=== PATIENT | female | born 1975 | race American Indian/Alaskan Native ===

== ENCOUNTER 2019-10-13 21:19 | Inpatient (IN) | payer OTHER ==
[2019-10-13] MEDS ORDERED: ONDANSETRON 4 MG/2 ML INJ ONE (21:28)
[2019-10-13] MEDS ORDERED: CEFEPIME/NS 2 GM/100 ML 2 GM/100 ML BAG IV ONE (21:32)
[2019-10-13 21:51] LABS: Hematocrit 46.7 % (30.3-42.9); Hemoglobin 15.3 gm/dl (10.1-14.3); Mean Corpuscular HGB Conc 33 % (30-34); Mean Corpuscular Volume 97 fl (79-97); Platelet Count 270 K/mm3 (140-440); Red Blood Count 4.81 M/mm3 (3.65-5.03); Red Cell Distribution Width 14.2 % (13.2-15.2)
[2019-10-13 22:03] LABS: INR 0.96 (0.87-1.13); Partial Thromboplastin Time 24.2 Sec. (24.2-36.6)
[2019-10-13 22:10] LABS: Alanine Aminotransferase 21 units/L (7-56); Albumin 3.8 g/dL (3.9-5); BUN/Creatinine Ratio 14; Blood Urea Nitrogen 17 mg/dL (7-17); Calcium 9.1 mg/dL (8.4-10.2); Hemolysis Index 25
[2019-10-13 22:23] LABS: Giant Platelets 1+; RBC Morphology Normal; Total Cells Counted 100
[2019-10-13 23:15] LABS: Hepatitis B Surface Antigen Non-Reactive (Negative); Hepatitis C Virus Antibody Non-Reactive (NonReactive)
--- NOTE | 2019-10-14 00:15 | Emergency Department Report ---
ED General Adult HPI - General Chief complaint: Dyspnea/Respdistress Stated complaint: RESP DISTRESS Time Seen by Provider: 10/13/19 21:33 Source: EMS Mode of arrival: Stretcher Limitations: Other - History of Present Illness Initial comments: Patient presents to the emergency department with a chief complaint of shortness of breath. Per EMS they received a phone call for our response the patient and upon their arrival the patient's O2 sats were in the low 40s. An attempt was made to intubate the patient was began to vomit. Patient arrives to the ED with a nonrebreather mask on with O2 sats in the low 90s. Patient complains of feeling short of breath and states that while working out she began to cough severely which led to her throwing up. Patient denies chest pain, headache, abdominal pain. -: Sudden Severity scale (0 -10): 0 Consistency: constant Improves with: none Worsens with: none Associated Symptoms: denies other symptoms Treatments Prior to Arrival: none - Related Data Allergies Allergy/AdvReac Type Severity Reaction Status Date / Time No Known Allergies Allergy Unverified 10/13/19 21:55 ED Review of Systems ROS: Stated complaint: RESP DISTRESS Other details as noted in HPI Constitutional: denies: chills, fever Eyes: denies: eye pain, eye discharge, vision change ENT: denies: ear pain, throat pain Respiratory: cough, shortness of breath. denies: wheezing Cardiovascular: denies: chest pain, palpitations Endocrine: no symptoms reported Gastrointestinal: denies: abdominal pain, nausea, diarrhea Genitourinary: denies: urgency, dysuria, discharge Musculoskeletal: denies: back pain, joint swelling, arthralgia Skin: denies: rash, lesions Neurological: denies: headache, weakness, paresthesias Psychiatric: denies: anxiety, depression Hematological/Lymphatic: denies: easy bleeding, easy bruising ED Past Medical Hx - Past Medical History Previous Medical History?: Yes Hx Hypertension: Yes - Social History Smoking Status: Never Smoker Substance Use Type: None ED Physical Exam - General Limitations: Other General appearance: alert, in distress - Head Head exam: Present: atraumatic, normocephalic - Eye Eye exam: Present: normal appearance, PERRL, EOMI - ENT ENT exam: Present: mucous membranes moist - Neck Neck exam: Present: normal inspection - Respiratory Respiratory exam: Present: respiratory distress, rales (B/L) - Cardiovascular Cardiovascular Exam: Present: normal rhythm, tachycardia. Absent: systolic murmur, diastolic murmur, rubs, gallop - GI/Abdominal GI/Abdominal exam: Present: soft, normal bowel sounds. Absent: distended, tenderness - Extremities Exam Extremities exam: Present: normal inspection - Back Exam Back exam: Present: normal inspection - Neurological Exam Neurological exam: Present: alert, oriented X3, CN II-XII intact. Absent: motor sensory deficit - Psychiatric Psychiatric exam: Present: normal affect, normal mood - Skin Skin exam: Present: warm, dry, intact, normal color. Absent: rash ED Course Vital Signs 10/13/19 10/13/19 10/13/19 21:30 21:41 22:03 Temperature 98.1 F Pulse Rate 105 H 102 H Respiratory 47 H 26 H 14 Rate Blood Pressure 226/156 Blood Pressure 177/128 [Left] O2 Sat by Pulse 99 94 100 Oximetry 10/14/19 01:05 Temperature Pulse Rate 99 H Respiratory 38 H Rate Blood Pressure 201/126 Blood Pressure [Left] O2 Sat by Pulse 99 Oximetry ED Medical Decision Making - Lab Data Result diagrams: 10/13/19 21:35 10/13/19 21:35 Lab Results 10/13/19 10/13/19 10/13/19 Range/Units 21:35 21:35 21:35 WBC 9.5 (4.5-11.0) K/mm3 RBC 4.81 (3.65-5.03) M/mm3 Hgb 15.3 H (10.1-14.3) gm/dl Hct 46.7 H (30.3-42.9) % MCV 97 (79-97) fl MCH 32 (28-32) pg MCHC 33 (30-34) % RDW 14.2 (13.2-15.2) % Plt Count 270 (140-440) K/mm3 Lymph % (Auto) Switchboard Operator Helper Lymph # Switchboard Operator Helper Add Manual Diff Complete Total Counted 100 Seg Neuts % (Manual) 33.0 L (40.0-70.0) % Band Neutrophils % 0 % Lymphocytes % (Manual) 59.0 H (13.4-35.0) % Reactive Lymphs % (Man) 0 % Monocytes % (Manual) 5.0 (0.0-7.3) % Eosinophils % (Manual) 2.0 (0.0-4.3) % Basophils % (Manual) 1.0 (0.0-1.8) % Metamyelocytes % 0 % Myelocytes % 0 % Promyelocytes % 0 % Blast Cells % 0 % Nucleated RBC % Not Reportable Seg Neutrophils # Man 3.1 (1.8-7.7) K/mm3 Band Neutrophils # 0.0 K/mm3 Lymphocytes # (Manual) 5.6 H (1.2-5.4) K/mm3 Abs React Lymphs (Man) 0.0 K/mm3 Monocytes # (Manual) 0.5 (0.0-0.8) K/mm3 Eosinophils # (Manual) 0.2 (0.0-0.4) K/mm3 Basophils # (Manual) 0.1 (0.0-0.1) K/mm3 Metamyelocytes # 0.0 K/mm3 Myelocytes # 0.0 K/mm3 Promyelocytes # 0.0 K/mm3 Blast Cells # 0.0 K/mm3 WBC Morphology Not Reportable Hypersegmented Neuts Not Reportable Hyposegmented Neuts Not Reportable Hypogranular Neuts Not Reportable Smudge Cells Not Reportable Toxic Granulation Not Reportable Toxic Vacuolation Not Reportable Dohle Bodies Not Reportable Pelger-Huet Anomaly Not Reportable Huey Rods Not Reportable Platelet Estimate Not Reportable Clumped Platelets Not Reportable Plt Clumps, EDTA Not Reportable Large Platelets Not Reportable Giant Platelets 1+ Platelet Satelliting Not Reportable Plt Morphology Comment Not Reportable RBC Morphology Normal Dimorphic RBCs Not Reportable Polychromasia Not Reportable Hypochromasia Not Reportable Poikilocytosis Not Reportable Anisocytosis Not Reportable Microcytosis Not Reportable Macrocytosis Not Reportable Spherocytes Not Reportable Pappenheimer Bodies Not Reportable Sickle Cells Not Reportable Target Cells Not Reportable Tear Drop Cells Not Reportable Ovalocytes Not Reportable Helmet Cells Not Reportable Rojas-Dales Bodies Not Reportable [place] Rings Not Reportable Reyes Cells Not Reportable Bite Cells Not Reportable Crenated Cell Not Reportable Elliptocytes Not Reportable Acanthocytes (Spur) Not Reportable Rouleaux Not Reportable Hemoglobin C Crystals Not Reportable Schistocytes Not Reportable Malaria parasites Not Reportable Lewis Bodies Not Reportable Hem Pathologist Commnt No PT 12.9 (12.2-14.9) Sec. INR 0.96 (0.87-1.13) APTT 24.2 (24.2-36.6) Sec. POC ABG pH (7.35-7.45) POC ABG pCO2 (35-45) POC ABG pO2 (80-105) POC ABG HCO3 (22-26 mml/L) POC ABG Total CO2 (23-27mmol/L) POC ABG O2 Sat POC ABG Base Excess ((-2) - (+3)mmol/L) FiO2 % Sodium 138 (137-145) mmol/L Potassium 3.7 (3.6-5.0) mmol/L Chloride 96.3 L (98-107) mmol/L Carbon Dioxide 19 L (22-30) mmol/L Anion Gap 26 mmol/L BUN 17 (7-17) mg/dL Creatinine 1.2 (0.7-1.2) mg/dL Estimated GFR 49 ml/min BUN/Creatinine Ratio 14 % Glucose 131 H (65-100) mg/dL Lactic Acid (0.7-2.0) mmol/L Calcium 9.1 (8.4-10.2) mg/dL Total Bilirubin 0.20 (0.1-1.2) mg/dL AST 28 (5-40) units/L ALT 21 (7-56) units/L Alkaline Phosphatase 78 (35-129) units/L Troponin T < 0.010 (0.00-0.029) ng/mL NT-Pro-B Natriuret Pep 407.4 (0-450) pg/mL Total Protein 7.6 (6.3-8.2) g/dL Albumin 3.8 L (3.9-5) g/dL Albumin/Globulin Ratio 1.0 % Hepatitis A IgM Ab (NonReactive) Hep Bs Antigen (Negative) Hep B Core IgM Ab (NonReactive) Hepatitis C Antibody (NonReactive) HIV 1&2 Antibody Rapid (Non React) HIV P24 Antigen (Non React) 10/13/19 10/13/19 10/13/19 Range/Units 21:35 21:35 21:35 WBC (4.5-11.0) K/mm3 RBC (3.65-5.03) M/mm3 Hgb (10.1-14.3) gm/dl Hct (30.3-42.9) % MCV (79-97) fl MCH (28-32) pg MCHC (30-34) % RDW (13.2-15.2) % Plt Count (140-440) K/mm3 Lymph % (Auto) Lymph # Add Manual Diff Total Counted Seg Neuts % (Manual) (40.0-70.0) % Band Neutrophils % % Lymphocytes % (Manual) (13.4-35.0) % Reactive Lymphs % (Man) % Monocytes % (Manual) (0.0-7.3) % Eosinophils % (Manual) (0.0-4.3) % Basophils % (Manual) (0.0-1.8) % Metamyelocytes % % Myelocytes % % Promyelocytes % % Blast Cells % % Nucleated RBC % Seg Neutrophils # Man (1.8-7.7) K/mm3 Band Neutrophils # K/mm3 Lymphocytes # (Manual) (1.2-5.4) K/mm3 Abs React Lymphs (Man) K/mm3 Monocytes # (Manual) (0.0-0.8) K/mm3 Eosinophils # (Manual) (0.0-0.4) K/mm3 Basophils # (Manual) (0.0-0.1) K/mm3 Metamyelocytes # K/mm3 Myelocytes # K/mm3 Promyelocytes # K/mm3 Blast Cells # K/mm3 WBC Morphology Hypersegmented Neuts Hyposegmented Neuts Hypogranular Neuts Smudge Cells Toxic Granulation Toxic Vacuolation Dohle Bodies Pelger-Huet Anomaly Huey Rods Platelet Estimate Clumped Platelets Plt Clumps, EDTA Large Platelets Giant Platelets Platelet Satelliting Plt Morphology Comment RBC Morphology Dimorphic RBCs Polychromasia Hypochromasia Poikilocytosis Anisocytosis Microcytosis Macrocytosis Spherocytes Pappenheimer Bodies Sickle Cells Target Cells Tear Drop Cells Ovalocytes Helmet Cells Rojas-Dales Bodies [place] Rings Bath Cells Bite Cells Crenated Cell Elliptocytes Acanthocytes (Spur) Rouleaux Hemoglobin C Crystals Schistocytes Malaria parasites Lewis Bodies Hem Pathologist Commnt PT (12.2-14.9) Sec. INR (0.87-1.13) APTT (24.2-36.6) Sec. POC ABG pH (7.35-7.45) POC ABG pCO2 (35-45) POC ABG pO2 (80-105) POC ABG HCO3 (22-26 mml/L) POC ABG Total CO2 (23-27mmol/L) POC ABG O2 Sat POC ABG Base Excess ((-2) - (+3)mmol/L) FiO2 % Sodium (137-145) mmol/L Potassium (3.6-5.0) mmol/L Chloride (98-107) mmol/L Carbon Dioxide (22-30) mmol/L Anion Gap mmol/L BUN (7-17) mg/dL Creatinine (0.7-1.2) mg/dL Estimated GFR ml/min BUN/Creatinine Ratio % Glucose (65-100) mg/dL Lactic Acid 7.50 H* (0.7-2.0) mmol/L Calcium (8.4-10.2) mg/dL Total Bilirubin (0.1-1.2) mg/dL AST (5-40) units/L ALT (7-56) units/L Alkaline Phosphatase (35-129) units/L Troponin T (0.00-0.029) ng/mL NT-Pro-B Natriuret Pep (0-450) pg/mL Total Protein (6.3-8.2) g/dL Albumin (3.9-5) g/dL Albumin/Globulin Ratio % Hepatitis A IgM Ab Non-reactive (NonReactive) Hep Bs Antigen Non-reactive (Negative) Hep B Core IgM Ab Non-reactive (NonReactive) Hepatitis C Antibody Non-reactive (NonReactive) HIV 1&2 Antibody Rapid Non react (Non React) HIV P24 Antigen Non react (Non React) 10/13/19 10/14/19 Range/Units 22:02 00:31 WBC (4.5-11.0) K/mm3 RBC (3.65-5.03) M/mm3 Hgb (10.1-14.3) gm/dl Hct (30.3-42.9) % MCV (79-97) fl MCH (28-32) pg MCHC (30-34) % RDW (13.2-15.2) % Plt Count (140-440) K/mm3 Lymph % (Auto) Lymph # Add Manual Diff Total Counted Seg Neuts % (Manual) (40.0-70.0) % Band Neutrophils % % Lymphocytes % (Manual) (13.4-35.0) % Reactive Lymphs % (Man) % Monocytes % (Manual) (0.0-7.3) % Eosinophils % (Manual) (0.0-4.3) % Basophils % (Manual) (0.0-1.8) % Metamyelocytes % % Myelocytes % % Promyelocytes % % Blast Cells % % Nucleated RBC % Seg Neutrophils # Man (1.8-7.7) K/mm3 Band Neutrophils # K/mm3 Lymphocytes # (Manual) (1.2-5.4) K/mm3 Abs React Lymphs (Man) K/mm3 Monocytes # (Manual) (0.0-0.8) K/mm3 Eosinophils # (Manual) (0.0-0.4) K/mm3 Basophils # (Manual) (0.0-0.1) K/mm3 Metamyelocytes # K/mm3 Myelocytes # K/mm3 Promyelocytes # K/mm3 Blast Cells # K/mm3 WBC Morphology Hypersegmented Neuts Hyposegmented Neuts Hypogranular Neuts Smudge Cells Toxic Granulation Toxic Vacuolation Dohle Bodies Pelger-Huet Anomaly Huey Rods Platelet Estimate Clumped Platelets Plt Clumps, EDTA Large Platelets Giant Platelets Platelet Satelliting Plt Morphology Comment RBC Morphology Dimorphic RBCs Polychromasia Hypochromasia Poikilocytosis Anisocytosis Microcytosis Macrocytosis Spherocytes Pappenheimer Bodies Sickle Cells Target Cells Tear Drop Cells Ovalocytes Helmet Cells Rojas-Dales Bodies [place] Rings Bath Cells Bite Cells Crenated Cell Elliptocytes Acanthocytes (Spur) Rouleaux Hemoglobin C Crystals Schistocytes Malaria parasites Lewis Bodies Hem Pathologist Commnt PT (12.2-14.9) Sec. INR (0.87-1.13) APTT (24.2-36.6) Sec. POC ABG pH 7.289 L (7.35-7.45) POC ABG pCO2 48.0 H (35-45) POC ABG pO2 134 H (80-105) POC ABG HCO3 23.1 (22-26 mml/L) POC ABG Total CO2 24 (23-27mmol/L) POC ABG O2 Sat 99 POC ABG Base Excess -4 ((-2) - (+3)mmol/L) FiO2 100 % Sodium (137-145) mmol/L Potassium (3.6-5.0) mmol/L Chloride (98-107) mmol/L Carbon Dioxide (22-30) mmol/L Anion Gap mmol/L BUN (7-17) mg/dL Creatinine (0.7-1.2) mg/dL Estimated GFR ml/min BUN/Creatinine Ratio % Glucose (65-100) mg/dL Lactic Acid 1.80 (0.7-2.0) mmol/L Calcium (8.4-10.2) mg/dL Total Bilirubin (0.1-1.2) mg/dL AST (5-40) units/L ALT (7-56) units/L Alkaline Phosphatase (35-129) units/L Troponin T (0.00-0.029) ng/mL NT-Pro-B Natriuret Pep (0-450) pg/mL Total Protein (6.3-8.2) g/dL Albumin (3.9-5) g/dL Albumin/Globulin Ratio % Hepatitis A IgM Ab (NonReactive) Hep Bs Antigen (Negative) Hep B Core IgM Ab (NonReactive) Hepatitis C Antibody (NonReactive) HIV 1&2 Antibody Rapid (Non React) HIV P24 Antigen (Non React) - EKG Data -: EKG Interpreted by Me EKG shows normal: sinus rhythm Rate: tachycardia - Radiology Data Radiology results: report reviewed - Medical Decision Making patient placed on BiPaP IVF's and IV ABx given Discussed plan of care with patient Critical Care Time: Yes Critical care time in (mins) excluding proc time.: 45 Critical care attestation.: If time is entered above; I have spent that time in minutes in the direct care of this critically ill patient, excluding procedure time. ED Disposition Clinical Impression: Bilateral pneumonia Disposition: [id number] OP ADMIT IP TO THIS HOSP Is pt being admited?: Yes Does the pt Need Aspirin: No Condition: Fair Instructions: Bacterial Pneumonia (ED)
--- NOTE | 2019-10-14 00:22 | XRay Report ---
CHEST 1 VIEW 11:55 PM INDICATION / CLINICAL INFORMATION: Hypoxia. COMPARISON: None available. FINDINGS: SUPPORT DEVICES: None. HEART / MEDIASTINUM: The heart size is normal. The aorta is normal in caliber. LUNGS / PLEURA: There is moderately severe multifocal patchy parenchymal disease and consolidation in both lungs, most prominent in the lower lung zones. There is no evidence of pleural effusion. No pne umothorax. ADDITIONAL FINDINGS: No significant additional findings. IMPRESSION: Moderately severe lateral parenchymal disease, more prominent in the lower lung zones. Di fferential diagnosis includes bacterial pneumonia and aspiration pneumonia. Signer Name: Jesús Ricardo MD Signed: 10/14/2019 12:18 AM Workstation Name: [id number]
[2019-10-14] MEDS ORDERED: PIPERACIL/TAZOBACTA 4.5/NS 100 4.5 GM/100 ML VIAL IV ONE (00:30)
[2019-10-14] MEDS ORDERED: dexAMETHasone 20 MG/5 ML VIAL IV ONE (00:30)
[2019-10-14] MEDS ORDERED: SODIUM CHLORIDE 0.9% 1000 ML 1,000 ML IV ONE (00:31)
--- NOTE | 2019-10-14 01:44 | Cat Scan Report ---
CT ANGIOGRAPHY OF THE CHEST WITH INTRAVENOUS CONTRAST AND MULTIPLANAR MIP RECONSTRUCTIONS INDICATION / CLINICAL INFORMATION: Hypoxia. TECHNIQUE: Axial CT images were obtained after injection of 100 cc Omnipaque 350 IV contrast using CTA protocol. 3 plane MIP / 3D reconstructions were produced. All CT scans at this location are performed using CT dose reduction for ALARA by means of automated exposure control. COMPARISON: None available. FINDINGS: There is good opacification of the pulmonary arterial system bilaterally without intraluminal filling defect to suggest acute PTE. The thoracic aorta is normal in caliber without dissection. The visuali zed coronary vessels are unremarkable. There is moderate to moderately severe patchy groundglass parenchymal disease and consolidation throu ghout both lungs/all lobes. Disease is most prominent in the lower lung zones. There is no evidence o f pleural or pericardial effusion. No evidence of mediastinal or hilar adenopathy is seen. There are calcified stones in the gallbladder without wall thickening or bile duct dilatation. The re mainder of the visualized upper abdomen is normal. No osseous abnormality is seen. IMPRESSION: 1. No evidence of acute PTE. 2. Moderate to moderately severe bilateral pneumonia. 3. Cholelithiasis. Signer Name: Jesús Ricardo MD Signed: 10/14/2019 1:39 AM Workstation Name: [id number]
--- NOTE | 2019-10-14 02:39 | History and Physical Report ---
History of Present Illness History of present illness: 43 year old woman with was brought to the emergency room for evaluation. At 3 months ago she started developing shortness of breath with exercising which resolved upon cessation of the exercise. Today her symptoms worsened, stated that she developed a cough, unclear color of the phlegm then she developed short of breath and she started vomiting. He stated that he poured some cold water on her to help her breathe. While she was vomiting, she became unresponsive for about 10 minutes. EMS reported that her sat was in the 30s, they try to intubate her and then she started vomiting and became responsive. Patient also complaining of generalized weakness, body aches. Patient is being admitted for aspiration pneumonia Review Of Systems: Constitutional: no weight loss, chills, fever Ears, eyes, nose, mouth and throat: no nasal congestion, no nasal discharge, no sinus pressure, blurry vision, diplopia Neck: No neck pain or rigidity. Cardiovascular: No palpitations, chest pain Respiratory: + cough, shortness of breath Gastrointestinal: No hematochezia, abdominal pain Genitourinary : no dysuria, frequency , hematuria Musculoskeletal: no muscle ache , joint pain Integumentary: no rash, no pruritis Neurological: no parathesias, focal weakness Endocrine: no cold or heat intolerance, no polyuria or polydipsia Hematologic/Lymphatic: no easy bruising, no easy bleeding, no gland swelling Allergic/Immunologic: no urticaria, no angioedema. PAST MEDICAL HISTORY: hypertension PAST SURGICAL HISTORY:None SOCIAL HISTORY: No alcohol, no tobacco or drugs FAMILY HISTORY: hypertension Medications and Allergies Allergies Allergy/AdvReac Type Severity Reaction Status Date / Time No Known Allergies Allergy Unverified 10/13/19 21:55 Exam - Physical Exam Narrative exam: Gen. appearance: Patient lying in bed, no apparent distress HEENT: Normocephalic, atraumatic, pupils equally round and reactive to light, extraocular movement intact, and no sclericterus,. No JVD or thyromegaly or nodule,neck supple, no carotid bruit ,mucous membranes moist, no exudate or erythema Heart: S1, S2, regular rate and rhythm Lungs: Crackles bilaterally, breathing comfortable Abdomen: Positive bowel sounds, nontender, nondistended, no organomegaly Extremity: No edema, cyanosis, clubbing Skin: No rash, nodules, warm, dry Neuro: Oriented 3, cranial nerves II-12 intact, speech is fluent, motor and sensory intact - Constitutional Vitals: Temp Pulse Resp BP Pulse Ox 98.1 F 99 H 38 H 201/126 99 10/13/19 21:41 10/14/19 01:05 10/14/19 01:05 10/14/19 01:05 10/14/19 01:05 Results - Labs CBC & Chem 7: 10/14/19 03:42 10/14/19 03:42 Labs: Abnormal lab results 10/13/19 10/13/19 10/13/19 Range/Units 21:35 21:35 21:35 Hgb 15.3 H (10.1-14.3) gm/dl Hct 46.7 H (30.3-42.9) % Seg Neuts % (Manual) 33.0 L (40.0-70.0) % Lymphocytes % (Manual) 59.0 H (13.4-35.0) % Lymphocytes # (Manual) 5.6 H (1.2-5.4) K/mm3 POC ABG pH (7.35-7.45) POC ABG pCO2 (35-45) POC ABG pO2 (80-105) Chloride 96.3 L (98-107) mmol/L Carbon Dioxide 19 L (22-30) mmol/L Glucose 131 H (65-100) mg/dL Lactic Acid 7.50 H* (0.7-2.0) mmol/L Albumin 3.8 L (3.9-5) g/dL 10/13/19 Range/Units 22:02 Hgb (10.1-14.3) gm/dl Hct (30.3-42.9) % Seg Neuts % (Manual) (40.0-70.0) % Lymphocytes % (Manual) (13.4-35.0) % Lymphocytes # (Manual) (1.2-5.4) K/mm3 POC ABG pH 7.289 L (7.35-7.45) POC ABG pCO2 48.0 H (35-45) POC ABG pO2 134 H (80-105) Chloride (98-107) mmol/L Carbon Dioxide (22-30) mmol/L Glucose (65-100) mg/dL Lactic Acid (0.7-2.0) mmol/L Albumin (3.9-5) g/dL - Imaging and Cardiology EKG: image reviewed Chest x-ray: report reviewed CT scan - chest: report reviewed Assessment and Plan Assessment Pneumonia most likely aspiration Start IV Zosyn, follow cultures Check flu cultures, start empiric Tamiflu Consult infectious disease Hypertension Continue outpatient medication DVT prophylaxis
[2019-10-14] MEDS ORDERED: dexAMETHasone 20 MG/5 ML VIAL ONE (02:41)
[2019-10-14] MEDS: hydrALAZINE 20 MG/1 ML INJ IV PRN ×3 (03:08→23:12)
[2019-10-14] MEDS ORDERED: ONDANSETRON 4 MG/2 ML INJ IV PRN (03:36)
[2019-10-14] MEDS ORDERED: ACETAMINOPHEN 650 MG RECT SUPP PR PRN (03:36)
[2019-10-14 04:21] LABS: Basophils # (Auto) 0.1 K/mm3 (0.0-0.1); Basophils % (Auto) 0.7 % (0.0-1.8); Eosinophils % (Auto) 0.1 % (0.0-4.3); Hematocrit 43.4 % (30.3-42.9); Hemoglobin 14.6 gm/dl (10.1-14.3); Lymphocytes # (Auto) 0.8 K/mm3 (1.2-5.4); Mean Corpuscular HGB Conc 34 % (30-34); Mean Corpuscular Volume 95 fl (79-97); Monocytes # (Auto) 0.3 K/mm3 (0.0-0.8); Monocytes % (Auto) 3.7 % (0.0-7.3); Platelet Count 238 K/mm3 (140-440); Red Blood Count 4.57 M/mm3 (3.65-5.03); Red Cell Distribution Width 13.9 % (13.2-15.2)
[2019-10-14 04:40] LABS: BUN/Creatinine Ratio 19; Blood Urea Nitrogen 19 mg/dL (7-17); Calcium 8.8 mg/dL (8.4-10.2); Hemolysis Index 4
[2019-10-14] MEDS: OSELTAMIVIR 75 MG CAP PO SCH ×2 (05:06→12:36)
[2019-10-14] MEDS ORDERED: PIPERACIL/TAZOBACTA 4.5/NS 100 4.5 GM/100 ML VIAL IV SCH (06:00)
[2019-10-14] MEDS: ACETAMINOPHEN 325 MG TAB PO PRN (06:39)
[2019-10-14] MEDS: SODIUM CHLORIDE 0.9% 1000 ML 1,000 ML IV SCH (10:33)
[2019-10-14] MEDS: ENOXAPARIN 40 MG/0.4 ML INJ SUB-Q SCH (10:34)
[2019-10-14] MEDS: AZITHROMYCIN 500 MG in SODIUM CHLORIDE 0.9% 250ML 250 ML IV SCH (12:29)
[2019-10-14] MEDS ORDERED: cefTRIAXone/NS 1 GM/50 ML 1 GM/50 ML BAG IV SCH (13:00)
--- NOTE | 2019-10-14 15:18 | Consultation ---
History of Present Illness - Reason for Consult Consult date: 10/14/19 - History of Present Illness 43 yo F no known PMHx presented to the hospital due to SOB and hypoxia. She notes that she initially started developing symptoms approximately 3 months ago with dyspnea on exertion. Prior to admission the dyspnea had always improved after stopping exercise, however on the day of admission she developed a productive cough. As well, the coughing became so severe that she vomited and became unresponsive. She was found to be hypoxic in the 30s, and intubation was attempted. However, she continued to vomit and was aroused. She now complains of generalized weakness and myalgias. She immigrated from [place] approximately a year ago and has not travelled since. She reports receiving several vaccinations a few months ago during the immigration process. She denies any sick contacts. Afebrile since admission with a normal white count. Cultures are pending. Currently on ceftriaxone/azithromycin. Imaging personally reviewed: Chest CT - bilateral pneumonia Review of Systems: Bold if positive, otherwise negative General: fevers, chills, rigors HEENT: visual disturbance, diplopia, eye pain Respiratory: cough, sputum, hemoptysis, shortness of breath Cardiovascular: chest pain, syncope Gastrointestinal: nausea, vomiting, diarrhea, abdominal pain Genitourinary: dysuria, hematuria, flank pain Musculoskeletal: neck pain, back pain, joint pain, edema Neurologic: headaches, seizures Hematologic: easy bruising or bleeding Endocrine: night sweats, acute weight loss Skin: rash, jaundice, redness Psychiatric: suicidal, homicidal ideation Past History Past Medical History: No medical history Past Surgical History: No surgical history Social history: lives with family Family history: hypertension Medications and Allergies Allergies Allergy/AdvReac Type Severity Reaction Status Date / Time No Known Allergies Allergy Unverified 10/13/19 21:55 Home Medications Medication Instructions Recorded Confirmed Last Taken Type Lisinopril [Zestril] 10 mg PO DAILY 10/14/19 10/14/19 10/13/19 History hydroCHLOROthiazide 50 mg PO BID 10/14/19 10/14/19 10/13/19 History [Hydrochlorothiazide] Active Meds: Active Medications Acetaminophen (Tylenol) 650 mg PO Q4H PRN PRN Reason: Pain MILD(1-3)/Fever >100.5/CRUZ Last Admin: 10/14/19 06:39 Dose: 650 mg Documented by: Acetaminophen (Tylenol) 650 mg MD Q4H PRN PRN Reason: Pain MILD(1-3)/Fever >100.5/CRUZ Enoxaparin Sodium (Enoxaparin) 40 mg SUB-Q QDAY [facility] Last Admin: 10/14/19 10:34 Dose: 40 mg Documented by: Hydralazine HCl (Apresoline) 5 mg IV Q6H PRN PRN Reason: Hypertension Last Admin: 10/14/19 06:38 Dose: 5 mg Documented by: Sodium Chloride (Nacl 0.9% 1000 Ml) 1,000 mls @ 100 mls/hr IV DIRECT ANTHONY Last Admin: 10/14/19 10:33 Dose: 100 mls/hr Documented by: Azithromycin 500 mg/ Sodium (Chloride) 250 mls @ 250 mls/hr IV Q24HR [facility]; Protocol Stop: 10/18/19 10:59 Last Admin: 10/14/19 12:29 Dose: 250 mls/hr Documented by: Ceftriaxone Sodium (Rocephin/Ns 1 Gm/50 Ml) 1 gm in 50 mls @ 100 mls/hr IV Q24HR ANTHONY; Protocol Last Admin: 10/14/19 13:31 Dose: 100 mls/hr Documented by: Ondansetron HCl (Zofran) 4 mg IV Q8H PRN PRN Reason: Nausea And Vomiting Last Admin: 10/14/19 06:37 Dose: 4 mg Documented by: Sodium Chloride (Sodium Chloride Flush Syringe 10 Ml) 10 ml IV BID [facility] Last Admin: 10/14/19 10:34 Dose: 10 ml Documented by: Sodium Chloride (Sodium Chloride Flush Syringe 10 Ml) 10 ml IV PRN PRN PRN Reason: LINE FLUSH Physical Examination - Physical Exam Narrative exam: Constitutional: Alert, cooperative. No acute distress, very pleasant Head, Ears, Nose: Normocephalic, atraumatic. External ears, nose normal Eyes: Conjunctivae/corneas clear. No icterus. No ptosis. Neck: Supple, no meningeal signs Oral: dentition fair, no thrush Cardiovascular: S1, S2 normal. Respiratory: Good air entry, clear to auscultation bilaterally GI: Soft, non-tender; bowel sounds normal. No peritoneal signs. Musculoskeletal: No pedal edema, no cyanosis. Skin: No rash or abscess Hem/Lymphatic: No palpable cervical or supraclavicular nodes. No lymphangitis Psych: Mood ok. Affect normal Neurological: Awake, alert, oriented. No gross abnormality - Constitutional Vitals: Vital Signs Temp Pulse Resp BP Pulse Ox 98.7 F 103 H 18 155/94 96 10/14/19 11:33 10/14/19 11:33 10/14/19 11:33 10/14/19 11:33 10/14/19 11:33 Temperature -Last 24 Hours Temperature 98.7 F Temperature 98.9 F Temperature 98.1 F Results - Labs CBC & Chem 7: 10/14/19 03:42 10/14/19 03:42 Labs: Abnormal lab results 10/13/19 10/13/19 10/13/19 Range/Units 21:35 21:35 21:35 Hgb 15.3 H (10.1-14.3) gm/dl Hct 46.7 H (30.3-42.9) % Lymph % (Auto) (13.4-35.0) % Lymph # (1.2-5.4) K/mm3 Seg Neutrophils % (40.0-70.0) % Seg Neuts % (Manual) 33.0 L (40.0-70.0) % Lymphocytes % (Manual) 59.0 H (13.4-35.0) % Lymphocytes # (Manual) 5.6 H (1.2-5.4) K/mm3 POC ABG pH (7.35-7.45) POC ABG pCO2 (35-45) POC ABG pO2 (80-105) Chloride 96.3 L (98-107) mmol/L Carbon Dioxide 19 L (22-30) mmol/L BUN (7-17) mg/dL Glucose 131 H (65-100) mg/dL Lactic Acid 7.50 H* (0.7-2.0) mmol/L Albumin 3.8 L (3.9-5) g/dL 10/13/19 10/14/19 10/14/19 Range/Units 22:02 03:42 03:42 Hgb 14.6 H (10.1-14.3) gm/dl Hct 43.4 H (30.3-42.9) % Lymph % (Auto) 11.0 L (13.4-35.0) % Lymph # 0.8 L (1.2-5.4) K/mm3 Seg Neutrophils % 84.5 H (40.0-70.0) % Seg Neuts % (Manual) (40.0-70.0) % Lymphocytes % (Manual) (13.4-35.0) % Lymphocytes # (Manual) (1.2-5.4) K/mm3 POC ABG pH 7.289 L (7.35-7.45) POC ABG pCO2 48.0 H (35-45) POC ABG pO2 134 H (80-105) Chloride (98-107) mmol/L Carbon Dioxide (22-30) mmol/L BUN 19 H (7-17) mg/dL Glucose (65-100) mg/dL Lactic Acid (0.7-2.0) mmol/L Albumin (3.9-5) g/dL 10/14/19 Range/Units 04:42 Hgb (10.1-14.3) gm/dl Hct (30.3-42.9) % Lymph % (Auto) (13.4-35.0) % Lymph # (1.2-5.4) K/mm3 Seg Neutrophils % (40.0-70.0) % Seg Neuts % (Manual) (40.0-70.0) % Lymphocytes % (Manual) (13.4-35.0) % Lymphocytes # (Manual) (1.2-5.4) K/mm3 POC ABG pH 7.461 H (7.35-7.45) POC ABG pCO2 (35-45) POC ABG pO2 118 H (80-105) Chloride (98-107) mmol/L Carbon Dioxide (22-30) mmol/L BUN (7-17) mg/dL Glucose (65-100) mg/dL Lactic Acid (0.7-2.0) mmol/L Albumin (3.9-5) g/dL Assessment and Plan Cultures 10/13/2019 blood cultures pending A&P:43 yo F no PMHx admitted with pneumonia after having some post-tussive vomiting with brief hypoxic respiratory failure. #acute sepsis - with tachycardia and tachypnea. Secondary to pneumonia. #Bilateral pneumonia - possibly aspiration, though post-tussive vomiting need to consider Pertussis (less likely given previous vaccinations. Continue azithromycin, but exchange ceftriaxone for Unasyn for now. Obtain sputum culture. Ordered procalcitonin. Some histo strains are endemic to [place] as well. If she does not respond to antibiotics would need to consider this and order send out testing. #ALBIN - on admission, now resolved. Continue to monitor and adjust antibiotic do sing if necessary. Recommendations: - stopped ceftriaxone - started unasyn 1.5g q6h - ordered procalcitonin - obtain sputum culture Thank you for the consult, we will continue to follow. Librado Giordano MD [facility] ([facility]) M: [phone] O: [phone] F: [phone]
--- NOTE | 2019-10-14 16:53 | Progress Note ---
Assessment and Plan Assessment and plan: 43-year-old woman with no past medical history who presents to the hospital after she had episode of syncope. The patient had a lot of coughing, followed by posttussive vomiting and a brief hypoxic episode. She states that she passed passed out, and her family brought her to the hospital. Aspiration pneumonia; bilateral pneumonia Most likely due to gram-positive bacteria, ID input appreciated, continue antibiotics. Follow-up sputum culture and procalcitonin. Flu swab negative Hypertension Has been getting IV hydralazine as needed, started on oral antihypertensive DVT prophylaxis Lovenox History Interval history: Review of systems Constitutional: No fevers, complaining of malaise, no joint pains CVS: No chest pain, no orthopnea, no pedal edema GI: No abdominal pain, no diarrhea, no vomiting, no constipation Respiratory: continues to have nonproductive cough Hospitalist Physical - Physical exam Narrative exam: General.: Mildly toxic appearance, mild distress HEENT: Moist mucous membranes, extraocular muscles intact, no lymphadenopathy Neck: supple Cardiac: S1-S2 heard Lungs: Rales Abdomen: soft , nontender, nondistended, bowel sounds positive Extremities: no edema clubbing or cyanosis Skin: no rash or lesions Neurologic: no gross focal deficits Psych: calm, and cooperative - Constitutional Vitals: Temp Pulse Resp BP Pulse Ox 98.7 F 103 H 18 155/94 96 10/14/19 11:33 10/14/19 11:33 10/14/19 11:33 10/14/19 11:33 10/14/19 11:33 Results - Labs CBC & Chem 7: 10/14/19 03:42 10/14/19 03:42 Labs: Laboratory Last Values WBC 7.6 K/mm3 (4.5-11.0) 10/14/19 03:42 RBC 4.57 M/mm3 (3.65-5.03) 10/14/19 03:42 Hgb 14.6 gm/dl (10.1-14.3) H 10/14/19 03:42 Hct 43.4 % (30.3-42.9) H 10/14/19 03:42 MCV 95 fl (79-97) 10/14/19 03:42 MCH 32 pg (28-32) 10/14/19 03:42 MCHC 34 % (30-34) 10/14/19 03:42 RDW 13.9 % (13.2-15.2) 10/14/19 03:42 Plt Count 238 K/mm3 (140-440) 10/14/19 03:42 Lymph % (Auto) 11.0 % (13.4-35.0) L 10/14/19 03:42 [place] % (Auto) 3.7 % (0.0-7.3) 10/14/19 03:42 Eos % (Auto) 0.1 % (0.0-4.3) 10/14/19 03:42 Baso % (Auto) 0.7 % (0.0-1.8) 10/14/19 03:42 Lymph # 0.8 K/mm3 (1.2-5.4) L 10/14/19 03:42 [place] # 0.3 K/mm3 (0.0-0.8) 10/14/19 03:42 Eos # 0.0 K/mm3 (0.0-0.4) 10/14/19 03:42 Baso # 0.1 K/mm3 (0.0-0.1) 10/14/19 03:42 Add Manual Diff Complete 10/13/19 21:35 Total Counted 100 10/13/19 21:35 Seg Neutrophils % 84.5 % (40.0-70.0) H 10/14/19 03:42 Seg Neuts % (Manual) 33.0 % (40.0-70.0) L 10/13/19 21:35 Band Neutrophils % 0 % 10/13/19 21:35 Lymphocytes % (Manual) 59.0 % (13.4-35.0) H 10/13/19 21:35 Reactive Lymphs % (Man) 0 % 10/13/19 21:35 Monocytes % (Manual) 5.0 % (0.0-7.3) 10/13/19 21:35 Eosinophils % (Manual) 2.0 % (0.0-4.3) 10/13/19 21:35 Basophils % (Manual) 1.0 % (0.0-1.8) 10/13/19 21:35 Metamyelocytes % 0 % 10/13/19 21:35 Myelocytes % 0 % 10/13/19 21:35 Promyelocytes % 0 % 10/13/19 21:35 Blast Cells % 0 % 10/13/19 21:35 Nucleated RBC % Not Reportable 10/13/19 21:35 Seg Neutrophils # 6.4 K/mm3 (1.8-7.7) 10/14/19 03:42 Seg Neutrophils # Man 3.1 K/mm3 (1.8-7.7) 10/13/19 21:35 Band Neutrophils # 0.0 K/mm3 10/13/19 21:35 Lymphocytes # (Manual) 5.6 K/mm3 (1.2-5.4) H 10/13/19 21:35 Abs React Lymphs (Man) 0.0 K/mm3 10/13/19 21:35 Monocytes # (Manual) 0.5 K/mm3 (0.0-0.8) 10/13/19 21:35 Eosinophils # (Manual) 0.2 K/mm3 (0.0-0.4) 10/13/19 21:35 Basophils # (Manual) 0.1 K/mm3 (0.0-0.1) 10/13/19 21:35 Metamyelocytes # 0.0 K/mm3 10/13/19 21:35 Myelocytes # 0.0 K/mm3 10/13/19 21:35 Promyelocytes # 0.0 K/mm3 10/13/19 21:35 Blast Cells # 0.0 K/mm3 10/13/19 21:35 WBC Morphology Not Reportable 10/13/19 21:35 Hypersegmented Neuts Not Reportable 10/13/19 21:35 Hyposegmented Neuts Not Reportable 10/13/19 21:35 Hypogranular Neuts Not Reportable 10/13/19 21:35 Smudge Cells Not Reportable 10/13/19 21:35 Toxic Granulation Not Reportable 10/13/19 21:35 Toxic Vacuolation Not Reportable 10/13/19 21:35 Dohle Bodies Not Reportable 10/13/19 21:35 Pelger-Huet Anomaly Not Reportable 10/13/19 21:35 Huey Rods Not Reportable 10/13/19 21:35 Platelet Estimate Not Reportable 10/13/19 21:35 Clumped Platelets Not Reportable 10/13/19 21:35 Plt Clumps, EDTA Not Reportable 10/13/19 21:35 Large Platelets Not Reportable 10/13/19 21:35 Giant Platelets 1+ 10/13/19 21:35 Platelet Satelliting Not Reportable 10/13/19 21:35 Plt Morphology Comment Not Reportable 10/13/19 21:35 RBC Morphology Normal 10/13/19 21:35 Dimorphic RBCs Not Reportable 10/13/19 21:35 Polychromasia Not Reportable 10/13/19 21:35 Hypochromasia Not Reportable 10/13/19 21:35 Poikilocytosis Not Reportable 10/13/19 21:35 Anisocytosis Not Reportable 10/13/19 21:35 Microcytosis Not Reportable 10/13/19 21:35 Macrocytosis Not Reportable 10/13/19 21:35 Spherocytes Not Reportable 10/13/19 21:35 Pappenheimer Bodies Not Reportable 10/13/19 21:35 Sickle Cells Not Reportable 10/13/19 21:35 Target Cells Not Reportable 10/13/19 21:35 Tear Drop Cells Not Reportable 10/13/19 21:35 Ovalocytes Not Reportable 10/13/19 21:35 Helmet Cells Not Reportable 10/13/19 21:35 Rojas-Mertens Bodies Not Reportable 10/13/19 21:35 [place] Rings Not Reportable 10/13/19 21:35 Reyes Cells Not Reportable 10/13/19 21:35 Bite Cells Not Reportable 10/13/19 21:35 Crenated Cell Not Reportable 10/13/19 21:35 Elliptocytes Not Reportable 10/13/19 21:35 Acanthocytes (Spur) Not Reportable 10/13/19 21:35 Rouleaux Not Reportable 10/13/19 21:35 Hemoglobin C Crystals Not Reportable 10/13/19 21:35 Schistocytes Not Reportable 10/13/19 21:35 Malaria parasites Not Reportable 10/13/19 21:35 Lewis Bodies Not Reportable 10/13/19 21:35 Hem Pathologist Commnt No 10/13/19 21:35 PT 12.9 Sec. (12.2-14.9) 10/13/19 21:35 INR 0.96 (0.87-1.13) 10/13/19 21:35 APTT 24.2 Sec. (24.2-36.6) 10/13/19 21:35 POC ABG pH 7.461 (7.35-7.45) H 10/14/19 04:42 POC ABG pCO2 37.1 (35-45) 10/14/19 04:42 POC ABG pO2 118 (80-105) H 10/14/19 04:42 POC ABG HCO3 26.5 (22-26 mml/L) 10/14/19 04:42 POC ABG Total CO2 28 (23-27mmol/L) 10/14/19 04:42 POC ABG O2 Sat 99 10/14/19 04:42 POC ABG Base Excess 3 ((-2) - (+3)mmol/L) 10/14/19 04:42 FiO2 45 % 10/14/19 04:42 Sodium 141 mmol/L (137-145) 10/14/19 03:42 Potassium 4.1 mmol/L (3.6-5.0) 10/14/19 03:42 Chloride 100.4 mmol/L (98-107) 10/14/19 03:42 Carbon Dioxide 24 mmol/L (22-30) 10/14/19 03:42 Anion Gap 21 mmol/L 10/14/19 03:42 BUN 19 mg/dL (7-17) H 10/14/19 03:42 Creatinine 1.0 mg/dL (0.7-1.2) 10/14/19 03:42 Estimated GFR > 60 ml/min 10/14/19 03:42 BUN/Creatinine Ratio 19 % 10/14/19 03:42 Glucose 82 mg/dL (65-100) 10/14/19 03:42 Lactic Acid 1.80 mmol/L (0.7-2.0) 10/14/19 00:31 Calcium 8.8 mg/dL (8.4-10.2) 10/14/19 03:42 Total Bilirubin 0.20 mg/dL (0.1-1.2) 10/13/19 21:35 AST 28 units/L (5-40) 10/13/19 21:35 ALT 21 units/L (7-56) 10/13/19 21:35 Alkaline Phosphatase 78 units/L (35-129) 10/13/19 21:35 Troponin T < 0.010 ng/mL (0.00-0.029) 10/13/19 21:35 NT-Pro-B Natriuret Pep 407.4 pg/mL (0-450) 10/13/19 21:35 Total Protein 7.6 g/dL (6.3-8.2) 10/13/19 21:35 Albumin 3.8 g/dL (3.9-5) L 10/13/19 21:35 Albumin/Globulin Ratio 1.0 % 10/13/19 21:35 Hepatitis A IgM Ab Non-reactive (NonReactive) 10/13/19 21:35 Hep Bs Antigen Non-reactive (Negative) 10/13/19 21:35 Hep B Core IgM Ab Non-reactive (NonReactive) 10/13/19 21:35 Hepatitis C Antibody Non-reactive (NonReactive) 10/13/19 21:35 HIV 1&2 Antibody Rapid Non react (Non React) 10/13/19 21: HIV P24 Antigen Non react (Non React) 10/13/19 21:35 Influenza A (Rapid) Negative (Negative) 10/14/19 Unknown Influenza B (Rapid) Negative (Negative) 10/14/19 Unknown Active Medications - Current Medications Current Medications: Generic Name Dose Route Start Last Admin Trade Name Freq PRN Reason Stop Dose Admin Acetaminophen 650 mg 10/14/19 03:36 10/14/19 06:39 Tylenol PO 650 mg Q4H PRN Administration Pain MILD(1-3)/Fever >100.5/CRUZ Acetaminophen 650 mg 10/14/19 03:36 Tylenol PA Q4H PRN Pain MILD(1-3)/Fever >100.5/CRUZ Enoxaparin Sodium 40 mg 10/14/19 10:00 10/14/19 10:34 Enoxaparin SUB-Q 40 mg QDAY ANTHONY Administration Hydralazine HCl 5 mg 10/14/19 02:39 10/14/19 06:38 Apresoline IV 5 mg Q6H PRN Administration Hypertension Sodium Chloride 1,000 mls @ 100 mls/hr 10/14/19 03:45 10/14/19 10:33 Nacl 0.9% 1000 Ml IV 100 mls/hr DIRECT ANTHONY Administration Azithromycin 500 mg/ Sodium 250 mls @ 250 mls/hr 10/14/19 13:00 10/14/19 12:29 Chloride IV 10/18/19 10:59 250 mls/hr Q24HR ANTHONY Administration Protocol Ampicillin Sodium/Sulbactam Sodium 1.5 gm in 50 mls @ 100 mls/hr 10/14/19 18:00 Unasyn/Ns 1.5 Gm/50 Ml IV Q6HR ANTHONY Protocol Ondansetron HCl 4 mg 10/14/19 03:36 10/14/19 06:37 Zofran IV 4 mg Q8H PRN Administration Nausea And Vomiting Sodium Chloride 10 ml 10/14/19 10:00 10/14/19 10:34 Sodium Chloride Flush Syringe 10 Ml IV 10 ml BID ANTHONY Administration Sodium Chloride 10 ml 10/14/19 03:36 Sodium Chloride Flush Syringe 10 Ml IV PRN PRN LINE FLUSH Nutrition/Malnutrition Assess - Dietary Evaluation Nutrition/Malnutrition Findings: Nutrition Notes Start: 10/14/19 09:30 Freq: Status: Active Protocol: Document 10/14/19 09:31 CT (Rec: 10/14/19 09:57 CT [id number]) Co-Sign 10/14/19 09:31 LM Nutrition Notes 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 No skin risk was recorded in physical assessment. Per RN, pt has not seen the MD d/t being a new arrival, this is the reason for no diet order. Pt stated that her UBW is 135 lbs and she has not noticed any weight loss. Pt stated that she was eating well [employer] and has not had any N/V since arrival yesterday. PT does not have any chewing or swallowing difficulties. Pt did c/o cold water making her nose clogged and making pneu symptoms worse. Recommended room temperature water with no ice. Burn Absent Trauma Absent GI Symptoms Nausea,Vomiting Current % PO Negligible Minimum of two criteria No physical signs of malnutrition #1 Nutrition Diagnosis Inadequate oral intake Etiology aspiration pneumonia As Evidenced by Signs and Symptoms N/V, no diet ordered Is patient on ventilator? No Is Patient Ambulatory and/or Out of Bed Yes REE-([facility]-ambulatory/OOB) [ 1641.900 [id number]] Calculation Used for Recommendations [facility] Additional Notes Protein needs: 50-62 g/kg/day (0.8-1 g/kg/day) Fluid needs: 1 ml/kcal/day Nutrition Intervention Change Diet Order: Diet advancement to cardiac diet when medically feasible Goal #1 Diet advancement Goal #2 Meet >75% of energy and protein needs Anticipated Discharge Needs: Cardiac diet Follow-Up By: 10/16/19 Additional Comments Follow up for diet advancement and PO intakes
[2019-10-14] MEDS: amLODIPine 5 MG TAB PO SCH (17:53)
[2019-10-14] MEDS: AMPICILLIN/SULBACTA 1.5GM/50ML 1.5 GM/50 ML BAG IV SCH (18:31)
[2019-10-15] MEDS: AMPICILLIN/SULBACTA 1.5GM/50ML 1.5 GM/50 ML BAG IV SCH ×3 (00:45→11:55)
[2019-10-15] MEDS: ACETAMINOPHEN 325 MG TAB PO PRN ×2 (05:13→13:05)
[2019-10-15] MEDS: SODIUM CHLORIDE 0.9% 1000 ML 1,000 ML IV SCH (05:14)
[2019-10-15] MEDS: ENOXAPARIN 40 MG/0.4 ML INJ SUB-Q SCH (09:03)
[2019-10-15] MEDS: amLODIPine 5 MG TAB PO SCH (09:03)
[2019-10-15] MEDS: AZITHROMYCIN 500 MG in SODIUM CHLORIDE 0.9% 250ML 250 ML IV SCH (09:08)
--- NOTE | 2019-10-15 10:32 | Discharge Summary ---
Providers - Providers Date of Admission: 10/14/19 02:38 Attending physician: BAAL MARIANO MD 10/14/19 03:36 Consult to Physician [CONS] Routine Comment: Consulting Provider: PAULINA MERINO Physician Instructions: Reason For Exam: pna/ ?flu Primary care physician: RULA SUMNER MD Hospitalization Condition: Fair Hospital course: 43-year-old woman with no past medical history who presents to the hospital after she had episode of syncope. The patient had a lot of coughing, followed by posttussive vomiting and a brief hypoxic episode. She states that she passed passed out, and her family brought her to the hospital. Aspiration pneumonia; bilateral pneumonia/sepsis She received antibiotics Syncope/transient autonomic imbalance Was most likely due to dehydration and sepsis, and occurred after posttussive vomiting. Acute hypoxic respiratory failure Now resolved Flu swab negative htn urgency; BP meds optimized. Hypertensive urgency Was started on p.o. BP meds prior to discharge DVT prophylaxis Lovenox Disposition: TO HOME OR SELFCARE Time spent for discharge: 35 minutes Core Measure Documentation - Palliative Care Palliative Care/ Comfort Measures: Not Applicable - Core Measures Any of the following diagnoses?: none Exam - Constitutional Vitals: Temp Pulse Resp BP Pulse Ox 98.4 F 88 16 150/76 97 10/15/19 05:43 10/15/19 09:03 10/15/19 05:43 10/15/19 09:03 10/15/19 05:43 General appearance: Present: no acute distress, well-nourished - EENT Eyes: Present: PERRL ENT: hearing intact, clear oral mucosa - Neck Neck: Present: supple, normal ROM - Respiratory Respiratory effort: normal Respiratory: bilateral: CTA - Cardiovascular Heart Sounds: Present: S1 & S2. Absent: rub, click - Extremities Extremities: pulses symmetrical, No edema Peripheral Pulses: within normal limits - Abdominal General gastrointestinal: Present: soft, non-tender, non-distended, normal bowel sounds Female genitourinary: Present: normal - Integumentary Integumentary: Present: clear, warm, dry - Musculoskeletal Musculoskeletal: gait normal, strength equal bilaterally - Psychiatric Psychiatric: appropriate mood/affect, intact judgment & insight - Neurologic Neurologic: CNII-XII intact, moves all extremities Plan Follow up with: PRIMARY CARE, [Primary Care Provider] - 7 Days Prescriptions: Amoxicillin/Potassium Clav [Augmentin 875-125 Tablet] 1 each PO BID #10 tablet
--- NOTE | 2019-10-15 13:26 | Progress Note ---
Assessment and Plan Cultures 10/13/2019 blood cultures pending A&P:43 yo F no PMHx admitted with pneumonia after having some post-tussive vomiting with brief hypoxic respiratory failure. #acute sepsis - with tachycardia and tachypnea. Secondary to pneumonia. #Bilateral pneumonia - possibly aspiration, though post-tussive vomiting need to consider Pertussis (less likely given previous vaccinations. Continue azithromycin, but exchange ceftriaxone for Unasyn for now. Obtain sputum culture. Ordered procalcitonin. Some histo strains are endemic to [place] as well. If she does not respond to antibiotics would need to consider this and order send out testing. #ALBIN - on admission, now resolved. Continue to monitor and adjust antibiotic dosing if necessary. Recommendations: - Continue unasyn 1.5g q6h - ordered procalcitonin - not yet resulted - obtain sputum culture - not yet resulted - Continue Unasyn while inpatient. If being discharged please send with Augmentin 875/125mg q12h. will plan on 8 days of antibiotics. Stop date: 10/22/2019 - Should follow up in my clinic within 2 weeks of discharge. Thank you for the consult, we will continue to follow. Librado Giordano MD [facility] ([facility]) M: [phone] O: [phone] F: [phone] Subjective Date of service: 10/15/19 Interval history: Afebrile, normal white count. Objective - Exam Narrative Exam: Constitutional: Alert, cooperative. No acute distress, very pleasant Head, Ears, Nose: Normocephalic, atraumatic. External ears, nose normal Eyes: Conjunctivae/corneas clear. No icterus. No ptosis. Neck: Supple, no meningeal signs Oral: dentition fair, no thrush Cardiovascular: S1, S2 normal. Respiratory: Good air entry, clear to auscultation bilaterally GI: Soft, non-tender; bowel sounds normal. No peritoneal signs. Musculoskeletal: No pedal edema, no cyanosis. Skin: No rash or abscess Hem/Lymphatic: No palpable cervical or supraclavicular nodes. No lymphangitis Psych: Mood ok. Affect normal Neurological: Awake, alert, oriented. No gross abnormality - Constitutional Vitals: Vital Signs Temp Pulse Resp BP Pulse Ox 98.7 F 95 H 18 160/107 96 10/15/19 12:05 10/15/19 12:23 10/15/19 12:05 10/15/19 12:23 10/15/19 12:05 Temperature -Last 24 Hours Temperature 98.7 F Temperature 98.4 F Temperature 99.2 F Temperature 98.2 F - Labs CBC & Chem 7: 10/14/19 03:42 10/14/19 03:42
[2019-10-15] MEDS ORDERED: hydrALAZINE 20 MG/1 ML INJ IV PRN (13:39)
[2019-10-15 16:14] VITALS: BP 171/105
[2019-10-15] MEDS ORDERED: hydrALAZINE 20 MG/1 ML INJ IV ONE (17:25)
== END 2019-10-15 18:08 | disposition home or self-care (01) | DRG 871 ==
LOC: ED 21:19 → 3A 10-14 02:38
PROVIDERS: ADMIT Internal Medicine; ATTEND Internal Medicine
PROC: 5A09357 Assistance with Respiratory Ventilation, Less than 24 Consecutive Hours, Continuous Positive Airway Pressure (ICD-10-PCS; 2019-10-13)
PROC: 4A033R1 Measurement of Arterial Saturation, Peripheral, Percutaneous Approach (ICD-10-PCS; principal; 2019-10-14)
PROC: 5A09357 Assistance with Respiratory Ventilation, Less than 24 Consecutive Hours, Continuous Positive Airway Pressure (ICD-10-PCS; 2019-10-14)
DX: A41.9 Sepsis, unspecified organism (principal); J69.0 Pneumonitis due to inhalation of food and vomit; J96.01 Acute respiratory failure with hypoxia; N17.9 Acute kidney failure, unspecified; I10 Essential (primary) hypertension; I16.0 Hypertensive urgency; E86.0 Dehydration; G90.8 Other disorders of autonomic nervous system; Z82.49 Family history of ischemic heart disease and other diseases of the circulatory system
CPT/HCPCS: 36415; 71045; 71275; 80048; 80053; 80074; 82140; 82803; 83880; 84145; 84484; 85025; 85610; 85730; 87040; 87070; 87205; 87400; 87806; 93005; 93010; G0378; J0295; J0360; J0456; J0692; J0696; J1100; J1650; J2405; J2543; J7030; J7050; Q9967